=== PATIENT | male | born 1965 | race African-American/Black ===

== ENCOUNTER 2022-08-31 13:50 | Emergency (ER) | payer OTHER, SELFPAY ==
[~2022-08-31] VITALS: Ht 180.3 cm; Wt 77.3 kg
[2022-08-31 14:06] VITALS: BP 138/82
[2022-08-31] MEDS ORDERED: LIDOCAINE 1% 10 ML VIAL INJ ONE (16:30)
[2022-08-31] MEDS ORDERED: PERTUSS(ACELL),DIPH,TET VAC/PF 0.5 ML SYRINGE IM. ONE (16:30)
[2022-08-31] MEDS ORDERED: BACITRACIN 28 GM OINTMENT TP ONE (16:30)
== END 2022-08-31 17:15 | disposition home or self-care (01) ==
LOC: EMS 14:30
DX: S51.811A Laceration without foreign body of right forearm, initial encounter (principal); F17.210 Nicotine dependence, cigarettes, uncomplicated; W26.8XXA Contact with other sharp object(s), not elsewhere classified, initial encounter; Y93.89 Activity, other specified; Y92.810 Car as the place of occurrence of the external cause; Y99.8 Other external cause status
CPT/HCPCS: 99283; 90715; 90471; 12002; J3490

== ENCOUNTER 2022-09-19 12:48 | Emergency (ER) | payer OTHER ==
[~2022-09-19] VITALS: Ht 180.3 cm; Wt 75.0 kg
[2022-09-19 12:58] VITALS: BP 127/74
[2022-09-19] MEDS ORDERED: BACITRACIN 0.9 GM PACKET OINTMENT TP ONE (14:00)
== END 2022-09-19 13:57 | disposition home or self-care (01) ==
LOC: EMS 12:48
DX: S50.911D Unspecified superficial injury of right forearm, subsequent encounter (principal); F17.210 Nicotine dependence, cigarettes, uncomplicated; Z48.02 Encounter for removal of sutures; X58.XXXD Exposure to other specified factors, subsequent encounter
CPT/HCPCS: 99282; Z7502; Z7610

== ENCOUNTER 2023-05-12 09:30 | Emergency (ER) | payer SELFPAY ==
[~2023-05-12] VITALS: Ht 180.3 cm; Wt 77.3 kg
[2023-05-12 09:36] VITALS: TEMP 98.4
[2023-05-12 09:39] LABS: COVID AG,FIA SOURCE NASAL SWAB
[2023-05-12 10:00] LABS: SARS-COV2 (COVID) ANTIGEN,FIA Negative (Negative)
[2023-05-12 10:01] LABS: INFLUENZA TYPE A NEGATIVE FOR TYPE A (NEGATIVE); INFLUENZA TYPE B NEGATIVE FOR TYPE B (NEGATIVE)
[2023-05-12] MEDS ORDERED: AMOX500T2 PO (11:08)
[2023-05-12 11:10] VITALS: BP 137/85; PULSE 81; RESP 16
== END 2023-05-12 11:24 | disposition home or self-care (01) ==
LOC: EMS 09:43
DX: J06.9 Acute upper respiratory infection, unspecified (principal); J32.9 Chronic sinusitis, unspecified; F17.210 Nicotine dependence, cigarettes, uncomplicated; Z20.822 Contact with and (suspected) exposure to COVID-19
CPT/HCPCS: 99283; 87426; 87804; C9803

== ENCOUNTER 2023-06-16 07:03 | Emergency (ER) | payer MEDICAID ==
[~2023-06-16] VITALS: Ht 180.3 cm; Wt 81.8 kg
[~2023-06-16 07:03] MED LIST: AMOX500T2 PO
[2023-06-16 07:12] VITALS: BP 134/65; PULSE 64; RESP 16; TEMP 98.3
[2023-06-16 07:48] LABS: COVID AG,FIA SOURCE NASAL SWAB
[2023-06-16 08:19] LABS: INFLUENZA TYPE B NEGATIVE FOR TYPE B (NEGATIVE); SARS-COV2 (COVID) ANTIGEN,FIA Negative (Negative)
[2023-06-16 08:27] LABS: INFLUENZA TYPE A POSITIVE FOR TYPE A (NEGATIVE)
[2023-06-16] MEDS ORDERED: GUAIFDM PO (08:38)
[2023-06-16] MEDS ORDERED: AMOX250C4 PO (08:38)
[2023-06-16] MEDS ORDERED: ACET-66 PO (08:38)
[2023-06-16] MEDS ORDERED: IBUP-1554 PO (08:38)
== END 2023-06-16 08:14 | disposition home or self-care (01) ==
LOC: EMS 07:04
DX: J10.1 Influenza due to other identified influenza virus with other respiratory manifestations (principal); F17.210 Nicotine dependence, cigarettes, uncomplicated; Z20.822 Contact with and (suspected) exposure to COVID-19
CPT/HCPCS: 87804; 99283

== ENCOUNTER 2023-08-05 14:21 | Emergency (ER) | payer SELFPAY ==
[~2023-08-05] VITALS: Ht 180.3 cm; Wt 77.3 kg
[~2023-08-05 14:21] MED LIST changes: +ACET-66 PO; +AMOX250C4 PO; -AMOX500T2 PO; +GUAIFDM PO; +IBUP-1554 PO
[2023-08-05 14:37] VITALS: TEMP 98.3
[2023-08-05 14:49] LABS: COVID AG,FIA SOURCE NASAL SWAB
[2023-08-05 14:53] LABS: SARS-COV2 (COVID) ANTIGEN,FIA Negative (Negative)
[2023-08-05 14:54] LABS: INFLUENZA TYPE A NEGATIVE FOR TYPE A (NEGATIVE); INFLUENZA TYPE B NEGATIVE FOR TYPE B (NEGATIVE)
[2023-08-05 17:42] VITALS: BP 134/74; PULSE 84; RESP 16
== END 2023-08-05 19:06 | disposition home or self-care (01) ==
LOC: EMS 14:21
DX: R05.9 Cough, unspecified (principal); Z20.822 Contact with and (suspected) exposure to COVID-19; Z53.21 Procedure and treatment not carried out due to patient leaving prior to being seen by health care provider
CPT/HCPCS: 87804; 99281; Z7502